=== PATIENT | male | born 2000 ===

== ENCOUNTER → 2025-05-26 09:05 | Outpatient (REF) | payer OTHER, SELFPAY ==
--- NOTE | 2025-05-26 | HM_ITS ---
* Total monitoring time 14 days. * Underlying rhythm is sinus with an average rate of 82/Min. * Rare ventricular ectopy. * No significant pauses or high-grade AV blocks. * Patient markers associated with sinus rhythm, sinus tachycardia. * Chest pain, palpitations in patient diary correlates with sinus rhythm and sinus tachycardia. MTDD
== END ==
LOC: HO.CARD 09:05
PROVIDERS: Visit Provider Nurse Practitioner
DX: R07.89 Other chest pain (principal)
CPT/HCPCS: 93246

== ENCOUNTER → 2025-05-26 09:05 | Outpatient (BNV) | payer OTHER, SELFPAY | PROVIDERS: Visit Provider Internal Medicine | DX: I49.3 Ventricular premature depolarization (principal) | CPT/HCPCS: 93248 ==